=== PATIENT | female | born 1980 | race Two or more races ===

== ENCOUNTER 2025-04-15 09:16 | Emergency (ER) | payer MEDICAID, SELFPAY ==
[2025-04-15 10:30] VITALS: BP 120/70; PULSE 88; RESP 18; TEMP 37.6; O2SAT 95; BMI 34.4
--- NOTE | 2025-04-15 10:39 | PD.EDNV ---
Nausea/Vomit./Diarrhea-RME/HPI General Chief complaint: Nausea/Vomiting/Diarrhea Stated complaint: Vomiting, diarrhea X 2 days Time Seen by Provider: 04/15/25 10:39 Arrival date/time: 04/15/25 09:16 RME / HPI RME / HPI Narrative: 44-year-old female with past medical history of gallstones presents to the ER complaining right upper quadrant pain, nausea, vomiting, diarrhea which started after eating lasagna about 24 hours ago. Patient states about 2 days ago she started feeling like she was getting a little bit sick and had a cough. Denies any abnormal vaginal bleeding, dysuria, abnormal vaginal discharge. Patient denies any recent antibiotic use. Related Data Previous Rx's ?Medication ?Instructions ?Recorded dicyclomine 20 mg tablet 20 mg PO Q8HR PRN Abdominal cramps 03/01/19 #10 tabs ondansetron 4 mg disintegrating 4 mg PO Q8H PRN nausea and 03/01/19 tablet vomiting #5 tabs amoxicillin 875 mg-potassium 1 tab PO Q12H #20 tabs 10/03/20 clavulanate 125 mg tablet (Augmentin) ibuprofen 800 mg tablet 800 mg PO Q6H PRN pain #30 tabs 10/03/20 ondansetron 4 mg disintegrating 4 mg PO Q8H #14 tabs 04/15/25 tablet Allergies Allergy/AdvReac Type Severity Reaction Status Date / Time No Known Allergies Allergy Verified 04/15/25 09:23 ED Exam Narrative Physical exam: Constitutional: Patient alert and oriented. Well appearing. No acute distress. Not toxic appearing. Head: Normocephalic, atraumatic. Eyes: Periorbital regions bilaterally normal to inspection. Conjunctiva clear bilaterally. Sclera anicteric bilaterally. Pupils equal, round, reactive to light bilaterally. Extraocular movements intact bilaterally. Mouth/Throat: Mucous membranes moist. No stridor or muffled voice. No trismus. Handling secretions without difficulty. Airway widely patent. Neck: Supple. Trachea midline. No JVD. No nuchal rigidity. Normal range of motion. Respiratory: Normal effort. No accessory muscle use or respiratory distress. Lungs clear to auscultation bilaterally without rhonchi, wheezes, or crackles. Cardiovascular: RRR. Normal S1/S2. No murmurs or rubs. Radial pulses intact bilaterally. Abdomen: Soft. Non-distended. No pulsatile mass. No guarding or rebound. Positive right upper quadrant mild tenderness. Negative Garsia?s sign. Negative McBurney?s point tenderness. Negative Rovsing?s. Back: No midline tenderness or step-offs. No CVA tenderness to palpation bilaterally. Upper Extremities: No gross deformities. Lower Extremities: No gross deformities. No edema or calf tenderness. Neuro: Speech normal. No gross motor or sensory deficits to upper or lower extremities bilaterally. GCS 15. CN II?XII grossly intact. Skin: Warm, dry, normal color. Psych: Normal affect. Cooperative. Normal insight. Course Quality Measures none Orders Category Date Time Status Bedside Influenza A&B Antigen Test NOW Care 04/15/25 13:34 Active NPO NOW Care 04/15/25 10:41 Active Consult to General Surgery Stat Cons 04/15/25 16:12 Ordered Diet NPO (NOW) Diet 04/15/25 10:[address] abdomen pelvis wo con Stat Exams 04/15/25 10:41 Completed US abdomen limited Stat Exams 04/15/25 10:41 Completed XR chest 2V Stat Exams 04/15/25 10:42 Completed Blood Culture (Lab) Stat Lab 04/15/25 13:43 Received CBC Stat Lab 04/15/25 11:05 Completed CMP [Comprehensive Metabolic Panel] Stat Lab 04/15/25 11:05 Completed HCG,Qualitative Serum Stat Lab 04/15/25 11:05 Completed Lactic Acid [Lactate (Lactic Acid)] Stat Lab 04/15/25 13:48 Completed Lipase Stat Lab 04/15/25 11:05 Completed Urinalysis Stat Lab 04/15/25 12:08 Completed Urine Culture Stat Lab 04/15/25 12:08 Received Ketorolac Inj [Toradol Inj] Med 04/15/25 10:41 Discontinued 30 mg IM X1 ONE Ondansetron Odt [Zofran Odt] Med 04/15/25 10:41 Discontinued 4 mg PO X1 ONE Reevaluation(s) Reevaluation #1: At the time of reassessment prior to discharge, the patient remains alert and oriented ?3 with GCS 15. Vitals are normal, pain is controlled, and the patient is tolerating oral intake without nausea or vomiting. The patient is agreeable to discharge and verbalizes understanding of the diagnosis, studies, treatment plan, medications (including side effects/precautions), and strict ER return precautions as discussed in the ED. All concerns were addressed, and the patient is comfortable with the plan. Time: 16:13 Vital Signs Vital signs: Vital Signs Temperature 99.6 F 04/15/25 10:30 Pulse Rate 88 04/15/25 10:30 Respiratory Rate 18 04/15/25 10:30 Blood Pressure 120/70 04/15/25 10:30 Pulse Oximetry (%) 95 04/15/25 10:30 Oxygen Delivery Method Room Air 04/15/25 10:30 Nausea/Vomiting/Diarrhea MDM Narrative MDM Narrative:: MDM: The patient presents with abdominal pain without definite explanation found on evaluation today. Ultrasound was notable for cholelithiasis and there is some component of biliary colic. Patient's symptoms may be related to gastroenteritis as well. Patient was evaluated by Dr Black, general surgery who advised patient safe for outpatient follow-up for elective cholecystectomy. However, there are no signs of peritonitis or other life-threatening or serious etiology. I considered admission; however, given negative work up and imaging, admission is not indicated. Serial abdominal exams were benign throughout the ED stay, and the patient tolerated oral intake without difficulty. The inherent uncertainty with undifferentiated abdominal pain was emphasized, and strict return precautions were provided. The patient has been instructed that this presentation could represent an early acute abdominal process. The plan is for mandatory re-evaluation within 24 hours and immediate return for worsening, persistence, or change in symptoms. The patient may follow up with their primary care provider or return to the ED as appropriate. The patient appears stable for discharge at this time. Patient data External records reviewed:: [facility] previous records Clinical information provided by:: patient Social determinants that could affect healthcare access:: none Patient has the following chronic illnesses:: As noted How is presenting disease/condition affected by chronic disease/condition?: exacerbated by Evaluation data The following diagnostics were reviewed and interpreted by me:: lab results and radiology exam(s) Lab and/or radiology exams considered but not ordered:: Additional Labs and radiology considered, but not ordered as they were not clinically indicated at this time. Interpretation Summary: CBC minimally elevated 12.9, hemoglobin mildly low at 10.6, hematocrit mildly low at 33.8, neutrophil number minimally elevated 11.2 immature granulocytes noted to be 1% Glucose minimally elevated 109, alk phos minimally elevated 130 however normal total bilirubin of 0.5, AST and ALT within normal limits as well, lipase within normal limits at 33 Squamous cells noted in the urine as well as amorphous crystals and 1+ bacteria as well as ketone and blood without nitrites or leuks Chest x-ray without acute cardiopulmonary abnormality Influenza negative CT scan notable for cholelithiasis without acute appendicitis or acute cholecystitis and otherwise no acute intra-abdominal or pelvic abnormality Ultrasound notable for cholelithiasis without acute cholecystitis Medications / Prescriptions Medications / Prescriptions considered but not ordered:: I ordered medications based on the patient?s clinical needs and assessment, as documented in the chart. For medications not prescribed, they were not indicated for the patient's current condition, and I determined they were unnecessary at this time to avoid potential risks or complications. Medication administrations:: Medication Administration History Discontinued Medications Ketorolac Tromethamine (Ketorolac Inj 30 Mg/Ml Vial) 30 mg IM X1 ONE Stop: 04/15/25 10:42 Last Admin: 04/15/25 11:18 Dose: 30 mg Documented By: AYLA Ondansetron HCl (Ondansetron Odt 4 Mg Tabrap) 4 mg PO X1 ONE; Protocol Stop: 04/15/25 10:42 Last Admin: 04/15/25 11:18 Dose: 4 mg Documented By: AYLA As noted Consultations Consultation(s) initiated? (list below): Yes Consultation #1 (Physician, Specialty, Details): General surgery, Dr. Black, patient safe for outpatient follow-up with dietary modification and likely elective cholecystectomy Time: 04:05 Diagnosis Nausea Differential Diagnosis: traveler's diarrhea, food poisoning and gastroenteritis Most likely diagnosis given after review of the tests above:: Biliary colic complicated by gastroenteritis Admission Indicated Admission indicated?: not indicated Admission Request Was there a request for admission?: No Disposition Plan Disposition Plan: Discharge Discharge Attestation Discharge Attestation: The patient and all family members were given an opportunity to ask questions and understood the discharge instructions. Discharge instructions specifically effects, indications for sooner follow up or return to the emergency department, and the expected course of current diagnosis. Patient condition: Stable Discharge Plan Plan Patient Disposition: HOME (Self Care) Patient condition on transfer: Stable Prescriptions/Referrals Prescriptions/Med Rec: New ondansetron 4 mg tablet,disintegrating 4 mg PO Q8H Qty: 14 0RF No Action dicyclomine 20 mg tablet 20 mg PO Q8HR PRN (Reason: Abdominal cramps) Qty: 10 0RF ondansetron 4 mg tablet,disintegrating 4 mg PO Q8H PRN (Reason: nausea and vomiting) Qty: 5 0RF ibuprofen 800 mg tablet 800 mg PO Q6H PRN (Reason: pain) Qty: 30 0RF amoxicillin-pot clavulanate [Augmentin] 875-125 mg tablet 1 tab PO Q12H Qty: 20 0RF Referrals: Fercho Dawn MD [Primary Care Provider, Family Practice] - In 1 week Max Black MD [Physician, General Surgery] - In 1 week Problem List Clinical Impression: Abdominal pain, Cholelithiasis Patient/Caregiver Discharge Instructions Education Materials: ED Abdominal Pain Gallstone Poss Additional Instructions: Follow up with your primary medical doctor and a general surgeon within 24 hours. Return to the Emergency Room immediately for any new, worsening, continuing symptoms or any concerns at all. Return to the Emergency Room within 24 hours if you are unable to follow up with your primary medical doctor and a general surgeon within 24 hours. Avoid fatty foods. 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 Uribe
--- NOTE | 2025-04-15 10:41 | XR_ITS ---
Examination: CT abdomen and pelvis without contrast. Coronal 3-D reconstructions. Sagittal 2-D reconstructions. Date and time of exam: April 15, 2025, 1317 hours INDICATION: Right-sided flank pain radiating to the back today CTDI: vol (mGy): 14.4 DLP: (mGycm): 872 Technique: Axial images of the abdomen have been obtained, 3 mm slice thickness Intravenous contrast material has not been administered. Low dose protocols were performed. One or more of the following dose reduction techniques were used; automated exposure control, adjustment of the mA and/or KV according to patient size, use of iterative reconstruction technique. Findings: Diffuse fatty infiltration throughout the liver Multiple gallstones Gallbladder wall does not appear thickened No pancreatic mass No renal or ureteral calculi, no hydronephrosis Normal appendix Scattered colonic diverticulosis, no diverticulitis No pelvic mass Contracted urinary bladder Intact osseous structures IMPRESSION: No renal or ureteral calculi, no hydronephrosis Cholelithiasis Normal appendix
--- NOTE | 2025-04-15 10:41 | XR_ITS ---
Examination: Abdomen sonogram, Limited Date and time of exam: April 15, 2025, 1221 hours INDICATIONS: Right upper abdominal pain and diarrhea beginning 2 days ago Technique: Real-time wade scale transabdominal sonographic images of the upper abdomen obtained. Findings: Multiple gallstones Common bile duct 0.4 cm Pancreatic head 2.5 cm Liver 17.6 cm fatty infiltration Normal hepatopetal portal venous flow Patent IVC IMPRESSION: Cholelithiasis, negative for cholecystitis Moderate hepatomegaly fatty infiltration no focal liver lesions
--- NOTE | 2025-04-15 10:42 | XR_ITS ---
EXAMINATION: PA lateral chest 2 views TECHNIQUE: Upright PA lateral chest 2 views Date and time: April 15, 2025, 1102 hours INDICATIONS: Chest pain beginning 2 days ago. FINDINGS: Normal heart size Lungs are clear. Osseous structures are intact IMPRESSION: No active disease
[2025-04-15] MEDS: ONDANSETRON ODT 4 MG TABRAP PO (11:18)
[2025-04-15] MEDS: KETOROLAC INJ 30 MG/ML VIAL IM (11:18)
[2025-04-15 11:31] LABS: Basophils # (Auto) 0.0 Thou/mm3 (0.0-0.2); Basophils % (Auto) 0 % (0-2.5); Eosinophils # (Auto) 0.0 Thou/mm3 (0.0-0.5); Eosinophils % (Auto) 0 % (0-10); Hematocrit 33.8 % (36.0-46.0); Hemoglobin 10.6 g/dL (12.0-16.0); Immature Granulocytes Auto 0.06 Thou/mm3 (0.00-0.00); Lymphocytes # (Auto) 0.8 Thou/mm3 (1.0-4.8); Lymphocytes % (Auto) 7 % (10-50); Mean Corpuscular HGB Conc 31.4 g/dl (31.0-37.0); Mean Corpuscular Hemoglobin 26.4 pg (25.0-35.0); Mean Corpuscular Volume 84 fL (80-100); Monocytes # (Auto) 0.8 Thou/mm3 (0.0-0.8); Monocytes % (Auto) 6 % (0-12); Neutrophils # (Auto) 11.2 Thou/mm3 (1.8-7.7); Neutrophils % (Auto) 87 % (37-80); Nucleated Red Blood Cell # 0.00 Thou/mm3 (0.00-0.00); Nucleated Red Blood Cell % 0 /100 WBC (0); Platelet Count 258 Thou/mm3 (140-440); RDW Standard Deviation 46.6 fL (36.4-46.3); Red Blood Count 4.02 Miln/mm3 (4.00-5.20); White Blood Count 12.9 Thou/mm3 (3.6-11.0)
[2025-04-15 11:49] LABS: Alanine Aminotransferase 47 U/L (10-49); Albumin, Serum 4.8 gm/dL (3.5-5.0); Albumin/Globulin Ratio 1.4 (1.2-2.2); Alkaline Phosphatase 130 U/L (46-116); Anion Gap 11 (7-16); Aspartate Amino Transferase 29 U/L (0-34); BUN/Creatinine Ratio 15 Ratio (12-20); Bilirubin,Total 0.5 mg/dL (0.3-1.2); Blood Urea Nitrogen 9 mg/dL (9-23); Calcium 9.3 mg/dL (8.3-10.6); Calcium (Corrected) 9.3 mg/dL (8.5-10.1); Carbon Dioxide 22.0 mMol/L (20.0-31.0); Chloride 106 mMol/L (98-107); Creatinine (Component) 0.6 mg/dL (0.6-1.3); Estimated Creatinine Clearance 138.9 mL/min (>60); Globulin 3.4 gm/dL (2.3-3.5); Glucose 109 mg/dL (74-106); Lipase 33 U/L (12-53); Osmolality,Calculated 277 (275-295); Potassium 3.7 mMol/L (3.4-5.1); Sodium 139 mMol/L (136-145); Total Protein 8.2 gm/dL (5.7-8.2); eGFR > 60 See Note
[2025-04-15 12:08] LABS: HCG,Qualitative Serum Negative
[2025-04-15 12:25] LABS: Collection Type, Urine Voided; RBC,Urine 0 /hpf (0-3); WBC,Urine 0 /hpf (0-5)
[2025-04-15 12:34] LABS: Amorphous Crystals,Urine Present (Absent); Bacteria,Urine 1+; Bilirubin,Urine Negative (Negative); Blood,Urine 2+ (Negative); Glucose, Urine Negative (Negative); Ketones,Urine 2+ (Negative); Leukocyte Esterase,Urine Negative (Negative); Nitrite,Urine Negative (Negative); PH,Urine 5.5 (5.0-7.0); Protein,Urine Trace (Neg - Trace); Specific Gravity,Urine 1.025 (1.001-1.035); Squamous Epithelial Cell,Urine 17 /hpf (0-5); Urobilinogen,Urine Negative mg/dL (0.0-1.0)
[2025-04-15 12:44] LABS: Clarity,Urine Cloudy (Clear/Hazy); Color,Urine Lt-Yellow (Lt Yel-Yel)
[2025-04-15 14:01] LABS: Lactate (Lactic Acid) 0.8 mMol/L (0.4-2.0)
[2025-04-15 15:28] VITALS: BP 112/71; PULSE 71; RESP 16; TEMP 36.7; O2SAT 97
== END 2025-04-15 16:32 | disposition home or self-care (01) ==
PROVIDERS: Physician Assistant; Emergency Provider Emergency Medicine; PCP Family Medicine
DX: K80.70 Calculus of gallbladder and bile duct without cholecystitis without obstruction (principal); R07.9 Chest pain, unspecified
CPT/HCPCS: 36415; 71046; 74176; 76705; 80053; 81001; 83605; 83690; 84703; 85025; 87040; 87086; 96372; 99284; J1885; Q0162